=== PATIENT | male | born 1990 | race Two or more races ===

== ENCOUNTER 2021-03-21 20:13 | Emergency (ER) | payer SELFPAY ==
[~2021-03-21] VITALS: Ht 175.3 cm; Wt 77.1 kg
[2021-03-21] MEDS ORDERED: TETRAcaine 5 ML BOTTLE EACHEYE ONE (21:00)
[2021-03-21] MEDS ORDERED: IV LR 500 ML IV ONE (21:00)
[2021-03-21] MEDS ORDERED: IV D5 LR 500 ML IV ONE (21:00)
[2021-03-21] MEDS ORDERED: ERYT3.5O9 EACHEYE (21:23)
[2021-03-21] MEDS ORDERED: IV LR 1000 ML 1,000 ML IV ONE (21:30)
[2021-03-21] MEDS ORDERED: ACETAMINOPHEN 325 MG TABLET ONE (21:33)
--- NOTE | 2021-03-21 21:36 | NUR ---
PT OK TO DISCHARGE PER CAM CARRINGTON. Patient discharged to home in stable condition. Written and verbal after care instructions given. Patient verbalizes understanding of instruction.Patient is awake and alert to self, day, and place. PT ambulatory with a steady gait
[2021-03-21 21:44] VITALS: BP 138/69
[2021-03-21] MEDS ORDERED: ACETAMINOPHEN 325 MG TABLET PO ONE (22:00)
== END 2021-03-21 21:45 | disposition home or self-care (01) ==
LOC: ER 20:30
DX: T54.91XA Toxic effect of unspecified corrosive substance, accidental (unintentional), initial encounter (principal); H10.213 Acute toxic conjunctivitis, bilateral; Y92.89 Other specified places as the place of occurrence of the external cause
CPT/HCPCS: 99284; J3490; J7120 ×3

== ENCOUNTER 2022-08-11 14:51 | Emergency (ER) | payer OTHER ==
[~2022-08-11] VITALS: Ht 175.3 cm; Wt 81.2 kg
[~2022-08-11 14:51] MED LIST: ERYT3.5O9 EACHEYE
--- NOTE | 2022-08-11 14:51 | NUR ---
bibfriend, cyanotic, not breathing, "possible fentanyl overdose per friend". Put patient on non-rebreather mask at bedside, IV line established and Narcan given and patient able to breth on his own. Re-orientation provided. Connected to the monitor and pulse ox, and secured entrance monitor. Kept comfortable, will continue to monitor accordingly. Diaphoretic, alert and oriented x 4, verbally responsive and able to make needs known.
[2022-08-11] MEDS ORDERED: NALOXONE PREFILLED SYRINGE 2 MG/2 ML SYRINGE ONE (14:55)
[2022-08-11] MEDS ORDERED: NALOXONE HCL 0.4 MG/ML AMPUL IV ONE ×2 (15:00→18:00)
[2022-08-11 15:35] LABS: ABG BASE EXCESS -1.9 mmol/L; ABG PCO2 44.6 mmHg (35.0-45.0); ABG PH 7.347 (7.350-7.450); ABG PO2 83.9 mmHg (75.0-100.0); COHb 0.7 % (0.5-1.5); MetHb 0.4 % (0.0-1.5); O2Hb 95.1 % (94.0-97.0); SITE, ABG Right Radial
[2022-08-11 15:38] LABS: BASOPHILS # (AUTO) 0.1 K/uL (0.0-0.2); BASOPHILS % (AUTO) 0.7 % (0.0-2.0); HEMATOCRIT 43 % (39-51); HEMOGLOBIN 14.4 g/dL (13.5-17.5); LYMPHOCYTES # (AUTO) 2.2 K/uL (0.8-4.8); LYMPHOCYTES % (AUTO) 28.3 % (20.0-44.0); MEAN CORPUSCULAR HGB CONC 34 g/dl (31.0-36.0); MEAN CORPUSCULAR VOLUME 89 fL (80-96); MONOCYTES # (AUTO) 0.5 K/uL (0.1-1.30); MONOCYTES % (AUTO) 6.4 % (2.0-12.0); NEUTROPHILS % (AUTO) 64.6 % (43.0-81.0); PLATELET COUNT (AUTO) 369 K/uL (150-450); RED BLOOD CELL COUNT(AUTO) 4.79 MIL/uL (4.5-6.0); WHITE BLOOD COUNT (AUTO) 7.7 K/uL (4.3-11.0)
[2022-08-11 15:51] LABS: CALCIUM, SERUM 8.5 mg/dL (8.5-10.1); CARBON DIOXIDE 25 mmol/L (21-32); CHLORIDE 102 mmol/L (98-107); CREATININE 1.1 mg/dL (0.6-1.3); GLUCOSE 197 mg/dL (74-106); POTASSIUM 3.3 mmol/L (3.5-5.1); SODIUM SERUM 139 mmol/L (136-145); UREA NITROGEN, BLOOD 11 mg/dL (7-18)
[2022-08-11 16:01] LABS: ALANINE AMINOTRANSFERASE 30 U/L (12-78); ALBUMIN 4.1 g/dL (3.4-5.0); ALCOHOL, BLOOD < 3 mg/dL (0-0); ALKALINE PHOSPHATASE 111 U/L (46-116); ASPARTATE AMINOTRANSFERASE 34 U/L (15-37); BILIRUBIN,DIRECT 0.4 mg/dL (0.0-0.2); BILIRUBIN,TOTAL 2.8 mg/dL (0.2-1.0); TOTAL PROTEIN, SERUM 7.7 g/dL (6.4-8.2)
[2022-08-11] MEDS ORDERED: ONDANSETRON HCL/PF 4 MG/2 ML VIAL ONE (19:21)
[2022-08-11] MEDS ORDERED: ONDANSETRON HCL/PF 4 MG/2 ML VIAL IV ONE (19:30)
[2022-08-11 19:47] VITALS: BP 139/83
--- NOTE | 2022-08-11 19:48 | NUR ---
PT TOLERATED PO CHALLENGE. NO S/S OF ASPIRATION NOTED. PT ALSO AMBULATED ON STEADY GAIT WITHOUT ASSIST.
[2022-08-11] MEDS ORDERED: NALO1DIS2 IM (19:53)
--- NOTE | 2022-08-11 20:00 | NUR ---
Patient discharged to home in stable condition. Written and verbal after care instructions given. Patient verbalizes understanding of instruction.IV removed. Catheter intact and site benign. Pressure and 4x4 applied to site. No bleeding noted. Pt ambulatory with a steady gait
== END 2022-08-11 20:29 | disposition home or self-care (01) ==
LOC: ER 14:51
DX: T40.2X1A Poisoning by other opioids, accidental (unintentional), initial encounter (principal); R40.20 Unspecified coma; Y92.89 Other specified places as the place of occurrence of the external cause
CPT/HCPCS: 99285; 96374; 96375; 93005; 96376; 70450; 85025; 80048; 80076; 36415; 36600; 80320; J2310 ×2; J2405; G0480